=== PATIENT | female | born 1965 | race Two or more races ===

== ENCOUNTER 2022-02-25 19:01 | Emergency (ER) | payer BC, MEDICAID ==
[~2022-02-25] VITALS: Ht 162.6 cm; Wt 72.6 kg
--- NOTE | 2022-02-25 20:04 | NUR ---
Dr Rincon at bedside. MSE in progress
[2022-02-25] MEDS ORDERED: IBUPROFEN 400 MG TABLET ONE (20:15)
[2022-02-25] MEDS ORDERED: HYDROCODONE/APAP 5-325MG TABLET PO ONE (20:15)
[2022-02-25] MEDS ORDERED: IBUPROFEN 400 MG TABLET PO ONE (20:15)
[2022-02-25] MEDS ORDERED: HYDROCODONE/APAP 5-325MG TABLET ONE (20:15)
[2022-02-25] MEDS ORDERED: HYDR-4209 PO (20:42)
--- NOTE | 2022-02-25 21:45 | NUR ---
Patient discharged to home in stable condition. Written and verbal after care instructions given. Patient verbalizes understanding of instructions. Stressed follow up or return to ER for worsening s/s. Patient is a/ox4, NAD noted. Patient is able to walk with steady gait
[2022-02-25 21:46] VITALS: BP 140/74
== END 2022-02-25 21:46 | disposition home or self-care (01) ==
LOC: ER 19:10
DX: J02.9 Acute pharyngitis, unspecified (principal); Z20.822 Contact with and (suspected) exposure to COVID-19; R03.0 Elevated blood-pressure reading, without diagnosis of hypertension
CPT/HCPCS: 86403; A4663